=== PATIENT | female | born 1985 | race Caucasian/White ===

== ENCOUNTER 2023-10-06 18:47 | Emergency (ER) | payer OTHER, SELFPAY ==
[2023-10-06 18:49] VITALS: BP 106/68
[2023-10-06 19:34] VITALS: BP 117/74; BMI 26.0
--- NOTE | 2023-10-06 20:46 | ED.GENMED ---
History of Present Illness
General
Chief Complaint: Generalized Pain
Source: patient
Time Seen by Provider: 10/06/23 20:35
Travel History
Have you had any contact with someone who has COVID-19?: No
Do you have any symptoms of coronavirus? Fever > 100 degrees, chills, cough, shortness of breath, sore throat, loss of taste or smell, muscle aches, or headache?: No
History of Present Illness
History of Present Illness:
37-year-old female presents to the emergency room complaining of pain in her right shoulder, left hand and muscle aches. Patient has been experiencing these issues for the past week. She denies any fever though she has had chills. Patient states
she is being treated for Crohn's disease but has missed her infusion of Humira by couple weeks due to insurance issues. She states that she was seen by an urgent care and had a negative flu test couple days ago. She denies any nausea or vomiting.
She endorses loose stools. She is tolerating oral intake. [place] an area with a high tick count.
Past History
Past History
ED Past Medical History: Other (Crohns)
Phy Exam
Physical Exam
Physical Exam:
General: Awake, Alert, Oriented X3. No acute distress.
Vitals: unremarkable
Head: Atraumatic
Eyes: Pupils equal, EOMI
Throat: Airway intact, no exudates
Neck: Trachea midline
Lungs: Clear and equal b/l
Heart: Regular rate, no murmurs
Abd: Soft, Nontender, No pulsatile mass
Neuro: Cranial nerves intact, muscle strength equal bilaterally, cerebellar exam normal
Skin: Warm, dry, no rash
Extremities: pulses equal b/l. Right shoulder tender to palpation diffusely. She has pain with passive extension at the shoulder but abduction and had flexion is less painful. Left hand seems mildly swollen compared to the right but not
significantly so. No point tenderness
Course
Orders/Labs/Results
Orders:
Orders
10/06/23 20:46
Test Result ONCE
10/06/23 20:49
CR Wrist - Left Min 3 Views Urgent
Comment:
Reason For Exam: pain, swelling
Shoulder, Right 2 Views [CR Shoulder - Right Min 2 View] Urgent
Comment:
Reason For Exam: pain, non-traumatic
10/06/23 20:51
Acetaminophen [Tylenol] 1,000 mg PO NOW STA
10/06/23 20:52
Acetaminophen [Tylenol] 1,000 mg .ROUTE .STK-MED ONE
10/06/23 20:57
COVID-19 Antigen Urgent
Source: Nasal Swab
CRP [C-Reactive Protein] Urgent
Complete Blood Count/With Diff Urgent
Comprehensive Metabolic Panel Urgent
HCG, Serum Qualitative Screen Urgent
Lyme Progressive Urgent
Sed Rate [Erythrocyte Sed Rate] Urgent
TSH Reflex To Free T4 Urgent
Influenza A+B Rapid Molecular Urgent
[place] Source: Nasal Swab
Specimen Description:
10/06/23 23:07
Oxycodone [Roxicodone] 5 mg PO NOW STA
Abnormal Lab Results
10/06/23
20:57
RBC 3.96 L 10^6/uL
(4.20-5.40)
Hct 35.3 L %
(37.0-47.0)
MCH 31.6 H pg
(27.0-31.0)
MPV 10.9 H fL
(7.4-10.4)
Absolute Monos (auto) 0.7 H 10^3/uL
(0.1-0.6)
Lymphocytes % 19.5 L %
(20.5-51.1)
Sodium 134 L mmol/L
(135-145)
Glucose 104 H mg/dl
(70-99)
C-Reactive Protein 45.50 H mg/L
(0.0-10.00)
Albumin 3.4 L g/dl
(3.5-5.0)
10/06/23 20:57
10/06/23 20:57
Vital Signs
Initial and Last Documented VS:
Initial Vital Signs
Temp Pulse Resp BP Pulse Ox
98.5 F 84 18 106/68 97
10/06/23 18:49 10/06/23 18:49 10/06/23 18:49 10/06/23 18:49 10/06/23 18:49
Last Documented Vital Signs
Temp Pulse Resp BP Pulse Ox
98.5 F 66 18 119/65 97
10/06/23 18:49 10/06/23 22:00 10/06/23 18:49 10/06/23 22:00 10/06/23 22:00
MDM/Problems Addressed
Differential Diagnosis Includes:
viral illness, lyme, rheumatologic process
MDM/Problems Addressed:
Patient's labs are unremarkable really save for her C-reactive protein. This does raise the possibility of rheumatologic cause for her joint pain particular given the fact that she has several joints involved. Patient cannot take NSAIDs as it may
cause Crohn's flare. However Storey 2 inhibitors seem less likely to do so. Will prescribe a course of this. Will given oxycodone for tonight until she can get that prescription filled tomorrow. Imaging shows no acute abnormalities in the affected
joints.
*Radiology
Radiology exam reviewed: radiology read reviewed
*Pulse Oximetry
Patient hypoxic: no
*Critical Care Note
Total Time (30-74mins, 75-104mins- exclusive of procedures): Not Applicable
ED Attending Note
-
Portions of this chart may have been created with voice recognition software.� Occasional wrong word or��sound alike� substitutions may have occurred due to the inherent limitations of voice recognition software.
Discharge Plan
Departure
Patient Disposition: Home (Routine Discharge)
Date of Disposition: 10/06/23
Time of Disposition: 23:33
Patient with high blood pressure during this ER visit?: No
Condition: Good
Discharge Problem:
Arthralgia
Prescriptions:
New
celecoxib [Celebrex] 200 mg capsule
200 mg PO DAILY Qty: 30 0RF
No Action
oxycodone-acetaminophen 5 MG/325 MG tablet
1 tab PO Q4HPRN PRN (Reason: pain) Qty: 12 0RF
tamsulosin 0.4 MG capsule
0.4 mg PO DAILY Qty: 14 0RF
ondansetron 4 MG tablet,disintegrating
4 mg PO TIDPRN PRN (Reason: nausea) Qty: 12 0RF
ondansetron 4 mg tablet,disintegrating
4 mg PO Q6H PRN (Reason: nausea and vomiting) Qty: 14 0RF
dicyclomine 10 mg capsule
10 mg PO QID Qty: 14 0RF
Referrals:
Kendra Quiros MD [Family Provider] -
Activity Restrictions/Additional Instructions:
Please follow up with your [facility]. We will call you if your lyme test is positive. Celebrex has been sent to your pharmacy to [facility].
Interventions
Interventions:
*Risk Screen - Suicide Last Done: 10/06/23 19:34
*General Assessment Last Done: 10/06/23 18:49
*Neglect/Abuse Screening Last Done: 10/06/23 19:34
*ED COVID-19 Vaccine History Last Done: 10/06/23 18:49
[2023-10-06] MEDS: TYLENOL 1000 MG PO (20:53)
[2023-10-06 21:05] LABS: % Basophils 0.5 % (0-2); % Immature Granulocytes 0.2 % (0-0.5); % Lymphocytes 19.5 % (20.5-51.1); % Neutrophils 70.8 % (42.2-75.2); Absolute Eosinophils 0.1 10^3/uL (0-0.7); Absolute Lymphocytes 1.7 10^3/uL (1.2-3.4); Absolute Monocytes 0.7 10^3/uL (0.1-0.6); Absolute Neutrophils 6.3 10^3/uL (1.4-6.5); Hematocrit 35.3 % (37.0-47.0); Hemoglobin 12.5 g/dL (12.0-16.0); Mean Corp Hgb Conc. 35.4 g/dL (33.0-37.0); Mean Corpuscular Hgb 31.6 pg (27.0-31.0); Mean Corpuscular Volume 89.1 fL (81.0-99.0); Mean Platelet Volume 10.9 fL (7.4-10.4); Nucleated Red Blood Cells % 0 %; Platelet Count 217 10^3/uL (130-400); Red Blood Cell Count 3.96 10^6/uL (4.20-5.40); Red Cell Dist. Width 12.6 % (11.5-14.5); White Blood Cell Count 8.9 10^3/uL (4.8-10.8)
[2023-10-06 21:16] LABS: Erythrocyte Sed Rate 17 mm/hour (0-20)
[2023-10-06 21:23] LABS: ALT (SGPT) 17 U/L (0-35); AST (SGOT) 19 U/L (14-36); Albumin 3.4 g/dl (3.5-5.0); Alkaline Phosphatase 49 U/L (38-126); Blood Urea Nitrogen 13 mg/dl (7-17); Calcium 8.5 mg/dl (8.4-10.2); Carbon Dioxide 24 mmol/L (22-30); Estimated Creatinine Clearance 85 ml/min; Glucose 104 mg/dl (70-99); HCG, Serum Qualitative Screen Negative; Total Bilirubin 0.5 mg/dl (0.2-1.3); Total Protein 6.3 g/dl (6.3-8.2); eGFR > 60.00
[2023-10-06 21:24] LABS: COVID-19 Antigen Negative (Negative)
[2023-10-06 21:53] LABS: Chloride 103 mmol/L (98-107); Potassium 3.9 mmol/L (3.5-5.1); Sodium 134 mmol/L (135-145); TSH Reflex To Free T4 0.92 uIU/ml (0.47-4.68)
[2023-10-06 22:00] VITALS: BP 119/65
[2023-10-06] MEDS: ROXICODONE 5 MG PO (23:14)
[2023-10-12 16:20] LABS: Lyme Antibody Screen, EIA Negative (Negative)
== END 2023-10-07 00:14 | disposition home or self-care (01) ==
LOC: EMR 18:47
PROVIDERS: EMERGENCY PHYSICIAN Emergency Medicine; FAMILY PHYSICIAN Family Medicine
DX: M25.511 Pain in right shoulder (principal); M79.642 Pain in left hand; M79.89 Other specified soft tissue disorders; Z11.52 Encounter for screening for COVID-19; K50.90 Crohn's disease, unspecified, without complications; Z88.6 Allergy status to analgesic agent
CPT/HCPCS: 99284; 73030; 73110; 80053; 84443; 84703; 85025; 85652; 86140; 86618; 87502; 87811